=== PATIENT | female | born 2000 | race African-American/Black ===

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

== ENCOUNTER 2019-12-25 22:08 | Emergency (ER) | payer MEDICAID ==
[2019-12-25 22:39] VITALS: BP 150/77
--- NOTE | 2019-12-25 23:26 | ER Document Report ---
HPI - HPI Patient complains to provider of: Skin rash Time Seen by Provider: 12/25/19 23:16 Pain Level: 3 Context: 19-year-old female past medical history significant for migraines presents to the emergency room complaining of dry patchy areas of skin to both of her hands lateral aspect just below the fifth finger on both hands. States she first noticed it approximately a month ago on the right and now she has 1 on the left in the same spot that started approximately 1 week ago she denies any changes in soaps, creams, lotions, no new foods. States she does work at [employer] but has not come in contact with any chemicals that she is aware of. Has tried using [id number] antibiotic ointment and antifungal cream without relief. States is only painful to touch. States they started out as dry patches of skin and then peel open. There is been no discharge or draining. No fevers. Associated Symptoms: None Exacerbated by: Other - Touching the areas Relieved by: Remaining still Similar symptoms previously: No Recently seen / treated by doctor: No - ROS Systems Reviewed and Negative: Yes All other systems reviewed and negative - CONSTITUTIONAL Constitutional: DENIES: Fever - NEURO Neurology: DENIES: Weakness - REPRODUCTIVE LMP: 1 wk Reproductive: DENIES: : - MUSCULOSKELETAL Musculoskeletal: REPORTS: Extremity pain - DERM Skin Color: Erythema Skin Problems: Rash Past Medical History - General Information source: Patient - Social History Smoking Status: Never Smoker Frequency of alcohol use: None Drug Abuse: None Family History: Reviewed & Not Pertinent - Past Medical History Cardiac Medical History: Denies: Hx Heart Attack, Hx Hypertension Pulmonary Medical History: Denies: Hx Asthma Neurological Medical History: Reports: Hx Migraine. Denies: Hx Cerebrovascular Accident, Hx Seizures Renal/ Medical History: Denies: Hx Peritoneal Dialysis GI Medical History: Denies: Hx Hepatitis, Hx Hiatal Hernia, Hx Ulcer Infectious Medical History: Denies: Hx Hepatitis Past Surgical History: Reports: Hx Tonsillectomy. Denies: Hx Hysterectomy, Hx Mastectomy, Hx Open Heart Surgery, Hx Pacemaker - Immunizations Immunizations up to date: Yes Vertical Provider Document - CONSTITUTIONAL Agree With Documented VS: Yes Exam Limitations: No Limitations - INFECTION CONTROL TRAVEL OUTSIDE OF THE [place] IN LAST 30 DAYS: No - HEENT HEENT: Atraumatic, Normocephalic - NECK Neck: Normal Inspection, Supple, Thyroid Normal - RESPIRATORY Respiratory: Breath Sounds Normal, No Respiratory Distress, Chest Non-Tender - CARDIOVASCULAR Cardiovascular: Regular Rate, Regular Rhythm, No Murmur - MUSCULOSKELETAL/EXTREMETIES Musculoskeletal/Extremeties: FROM, Non-Tender - NEURO Level of Consciousness: Awake, Alert, Appropriate Motor/Sensory: No Motor Deficit, No Sensory Deficit - DERM Integumentary: Warm, Dry, Rash - Along the lateral aspects of both of her hands proximal to the fifth finger on the right hand there is a 2 cm area of dry patchy skin. It is not warm or tender to palpation. On the left hand there is a 1 cm area also of dry patchy skin. Both areas are nontender to palpation. Not warm to touch. No active discharge or draining noted. Course - Re-evaluation Re-evalutation: 12/25/19 23:24 Counseled patient to use [id number] Eucerin cream as directed. Outpatient follow-up with a primary care physician if not improving in 2 to 3 days. On- call physician was provided. Patient was given strict return to the emergency room guidelines. Return for any new or worsening symptoms. All questions were answered. Patient verbalized understanding and agrees with plan of care. - Vital Signs Vital signs: Temp Pulse Resp BP Pulse Ox 98.4 F 88 14 150/77 H 100 12/25/19 22:37 12/25/19 22:37 12/25/19 22:37 12/25/19 22:37 12/25/19 22:37 Discharge - Discharge Clinical Impression: Rash and nonspecific skin eruption Eczema Qualifiers: Eczema type: unspecified Qualified Code(s): L30.9 - Dermatitis, unspecified Condition: Stable Disposition: HOME, SELF-CARE Instructions: Atopic Dermatitis (Eczema) ([facility]) Additional Instructions: Use [id number] Eucerin as directed. Outpatient follow-up with primary care physician as discussed. Return to the emergency room for any new or worsening symptoms. Referrals: MIGUELINA BRAY MD [Primary Care Provider] - Follow up as needed CHELSEY MOON MD [COMMUNITY BASED STAFF] - Follow up as needed
== END 2019-12-25 23:30 | disposition home or self-care (01) ==
LOC: ER 22:08
DX: L30.9 Dermatitis, unspecified (principal)
CPT/HCPCS: 99283